=== PATIENT | male | born 1965 | race American Indian/Alaskan Native ===

== ENCOUNTER 2019-02-20 08:21 | Emergency (ER) | payer OTHER ==
[2019-02-20] MEDS ORDERED: amLODIPine 5 MG TAB PO ONE (08:57)
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
[2019-02-20 09:24] LABS: Basophils % (Auto) 0.4 % (0.0-1.8); Eosinophils # (Auto) 0.1 K/mm3 (0.0-0.4); Eosinophils % (Auto) 1.4 % (0.0-4.3); Hematocrit 40.6 % (35.5-45.6); Hemoglobin 13.9 gm/dl (11.8-15.2); Lymphocytes # (Auto) 3.1 K/mm3 (1.2-5.4); Lymphocytes % (Auto) 41.4 % (13.4-35.0); Mean Corpuscular HGB Conc 34 % (32-34); Mean Corpuscular Volume 88 fl (84-94); Monocytes # (Auto) 0.6 K/mm3 (0.0-0.8); Monocytes % (Auto) 7.5 % (0.0-7.3); Platelet Count 223 K/mm3 (140-440); Red Blood Count 4.62 M/mm3 (3.65-5.03); Red Cell Distribution Width 13.4 % (13.2-15.2)
[2019-02-20 09:42] LABS: BUN/Creatinine Ratio 20; Blood Urea Nitrogen 16 mg/dL (9-20); Calcium 9.3 mg/dL (8.4-10.2); Hemolysis Index 2
[2019-02-20 09:43] LABS: Bacteria,Urine 4+ /HPF (Negative); Bilirubin,Urine NEG (Negative); Blood,Urine NEG (Negative); Color,Urine Yellow (Yellow); Mucus,Urine 3+ /HPF
[2019-02-20 09:45] LABS: Amphetamine Screen,Urine PRESUMPTIVE NEGATIVE; Benzodiazepines Screen,Urine PRESUMPTIVE NEGATIVE; Cannabinoid Screen,Urine PRESUMPTIVE NEGATIVE; Methadone Screen,Urine PRESUMPTIVE NEGATIVE; Opiate Screen,Urine PRESUMPTIVE NEGATIVE
[2019-02-20 09:56] LABS: Cocaine Screen,Urine PRESUMPTIVE POSITIVE
[2019-02-20] MEDS ORDERED: NITROFURANTOIN MONOHYD/M-CRYST 100 MG CAP PO ONE (10:07)
[2019-02-20] MEDS ORDERED: POTASSIUM CHLORIDE ER 20 MEQ TAB PO ONE (10:08)
[2019-02-20] MEDS ORDERED: LIDOCAINE-MPF (1%) 10 MG/1 ML VIAL 5 ML INFILTRATI ONE (10:09)
[2019-02-20] MEDS ORDERED: AZITHROMYCIN 1 GM ORAL PWDR PACKET PO ONE (10:09)
[2019-02-20] MEDS: NITROFURANTOIN MONOHYD/M-CRYST 100 MG CAP PO SCH (22:15)
[2019-02-21] MEDS ORDERED: amLODIPine 5 MG TAB PO SCH (10:00)
[2019-02-21] MEDS ORDERED: IBUPROFEN 800 MG TAB PO ONE (10:43)
[2019-02-21] MEDS ORDERED: ACETAMINOPHEN 500 MG TAB PO ONE (10:43)
[2019-02-21] MEDS: POTASSIUM CHLORIDE ER 20 MEQ TAB PO SCH (10:47)
[2019-02-21] MEDS: amLODIPine 10 MG TAB PO SCH (10:47)
[2019-02-21] MEDS: NITROFURANTOIN MONOHYD/M-CRYST 100 MG CAP PO SCH ×2 (10:47→21:57)
--- NOTE | 2019-02-21 13:30 | Progress Note ---
Subjective - Reason for Consult Consult date: 02/21/19 Reason for consult: Pshciatric follow up visit - Chief Complaint Chief complaint: Patient continues to report being depressed and suicidal. He wants to be admitted to the [place]. He denies [place]/[facility] Mental Status Exam - Vital signs Last Vital Signs Temp 97.9 F 02/21/19 07:00 Pulse 71 02/21/19 07:00 Resp 18 02/21/19 07:00 BP 160/96 02/21/19 07:00 Pulse Ox 99 02/21/19 07:00 - Exam Orientation: time, place, person Affect: depressed Mood: hopeless, congruent with affect Thought Process: Intact Perceptions: none Speech: normal rate and pattern Motor activity: normal Level of consciousness: alert Memory: Intact Sleep Symptoms: Difficulty Falling Asleep Interaction: cooperative Assessment and Plan - Patient Problems (1) Cocaine use disorder, severe, dependence Current Visit: Yes Status: Acute (2) Substance induced mood disorder Current Visit: Yes Status: Acute (3) Cocaine abuse Current Visit: Yes Status: Acute Plan to address problem: Recommendations: Continue 1013 Please transfer to inpatient psychiatry Will make medication adjustment as indicated
[2019-02-21] MEDS ORDERED: traZODone 50 MG TAB PO SCH (14:00)
[2019-02-21] MEDS: MIRTAZAPINE 15 MG TAB PO SCH (21:57)
[2019-02-22] MEDS: NITROFURANTOIN MONOHYD/M-CRYST 100 MG CAP PO SCH ×2 (10:55→22:39)
[2019-02-22] MEDS: POTASSIUM CHLORIDE ER 20 MEQ TAB PO SCH (10:55)
[2019-02-22] MEDS: buPROPion XL 150 MG TAB PO SCH (10:55)
[2019-02-22] MEDS: amLODIPine 10 MG TAB PO SCH (10:55)
--- NOTE | 2019-02-22 13:15 | Progress Note ---
Subjective - Reason for Consult Consult date: 02/22/19 Reason for consult: Psychiatry follow up - Chief Complaint Chief complaint: Patient continues to report being depressed and suicidal. He wants to be admitted to the [facility]. He denies HI/AVH Mental Status Exam - Vital signs Last Vital Signs Temp 97.8 F 02/22/19 08:37 Pulse 94 H 02/22/19 08:37 Resp 18 02/22/19 08:37 BP 146/66 02/22/19 08:37 Pulse Ox 99 02/22/19 01:30 - Exam Orientation: time, place, person Affect: depressed Mood: congruent with affect Thought Process: Intact Perceptions: none Speech: normal rate and pattern Concentration: focused Motor activity: normal Level of consciousness: alert Memory: Intact Interaction: cooperative Assessment and Plan - Patient Problems (1) Cocaine use disorder, severe, dependence Current Visit: Yes Status: Acute (2) Substance induced mood disorder Current Visit: Yes Status: Acute (3) Cocaine abuse Current Visit: Yes Status: Acute Plan to address problem: Recommendations: Continue 1013 Please transfer to inpatient psychiatry Will make medication adjustment as indicated
[2019-02-22] MEDS: MIRTAZAPINE 15 MG TAB PO SCH (22:39)
[2019-02-23] MEDS ORDERED: IBUPROFEN 600 MG TAB PO ONE ×2 (11:43→11:57)
[2019-02-23] MEDS: NITROFURANTOIN MONOHYD/M-CRYST 100 MG CAP PO SCH ×2 (11:50→23:05)
[2019-02-23] MEDS: amLODIPine 10 MG TAB PO SCH (11:50)
[2019-02-23] MEDS: buPROPion XL 150 MG TAB PO SCH (11:51)
--- NOTE | 2019-02-23 12:07 | Progress Note ---
Subjective - Reason for Consult Consult date: 02/23/19 Reason for consult: Psychiatric follow up - Chief Complaint Chief complaint: No change this morning. He continues to report being depressed and suicidal and continues to seek admission to the [place]. He is calm and cooperative, eating and sleeping well. He denies ID/H Mental Status Exam Orientation: time, place, person Affect: depressed Mood: congruent with affect Thought Content: Suicidal Thought Process: Intact Perceptions: none Speech: normal rate and pattern Concentration: focused Motor activity: normal Level of consciousness: alert Memory: Intact Interaction: cooperative Assessment and Plan - Patient Problems (1) Cocaine use disorder, severe, dependence Current Visit: Yes Status: Acute (2) Substance induced mood disorder Current Visit: Yes Status: Acute (3) Cocaine abuse Current Visit: Yes Status: Acute Plan to address problem: Recommendations: Continue 1013 Please transfer to inpatient psychiatry Will make medication adjustment as indicated Mental Status Exam - Vital signs Last Vital Signs Temp 98.4 F 02/23/19 01:15 Pulse 98 H 02/23/19 11:50 Resp 16 02/23/19 01:15 BP 137/78 02/23/19 11:50 Pulse Ox 98 02/23/19 01:15 Assessment and Plan - Patient Problems (1) Cocaine use disorder, severe, dependence Status: Acute (2) Substance induced mood disorder Status: Acute (3) Cocaine abuse Status: Acute
[2019-02-23] MEDS: MIRTAZAPINE 15 MG TAB PO SCH (22:00)
[2019-02-24] MEDS: amLODIPine 10 MG TAB PO SCH (10:26)
[2019-02-24] MEDS: NITROFURANTOIN MONOHYD/M-CRYST 100 MG CAP PO SCH (10:27)
[2019-02-24] MEDS: buPROPion XL 150 MG TAB PO SCH (10:27)
--- NOTE | 2019-02-24 12:17 | Progress Note ---
Subjective - Reason for Consult Consult date: 02/24/19 Reason for consult: Psychiatric Follow up - Chief Complaint Chief complaint: Patient review this morning. Nursing staff reports that patient is calm and interactive. He is eating and sleeping well. In my interview with the patient this morning, he reports that his mood is better, he denies SI/HI/AVH/Paranoia. His only concern is that he has no where to stay. Mental Status Exam Orientation: time, place, person Affect: better Mood: congruent with affect Thought Content: No suicidal/homicidal thoughts Thought Process: Intact Perceptions: none Speech: normal rate and pattern Concentration: focused Motor activity: normal Level of consciousness: alert Memory: Intact Interaction: cooperative Assessment and Plan - Patient Problems (1) Cocaine use disorder, severe, dependence Current Visit: Yes Status: Acute (2) Substance induced mood disorder Current Visit: Yes Status: Acute (3) Cocaine abuse Current Visit: Yes Status: Acute Plan to address problem: Recommendations: 1013 Rescinded May discharge home when medically stable. Please discharge on: Wellbutrin xl 150mg qd Remeron 15mg qhs Trazodone 50mg qhs prn insomnia. Thanks Mental Status Exam - Vital signs Last Vital Signs Temp 97.6 F 02/24/19 01:03 Pulse 62 02/24/19 10:26 Resp 16 02/24/19 08:00 BP 160/93 02/24/19 10:26 Pulse Ox 100 02/24/19 08:00
[2019-02-24 13:26] VITALS: BP 164/96
== END 2019-02-24 13:40 | disposition home or self-care (01) ==
LOC: ED 08:21
DX: F14.10 Cocaine abuse, uncomplicated (principal); I10 Essential (primary) hypertension; E87.6 Hypokalemia; N39.0 Urinary tract infection, site not specified; Z91.14 Patient's other noncompliance with medication regimen
CPT/HCPCS: 36415; 80048; 80307; 81001; 83735; 85025; 87076; 87086; 87186; 96372; 99284; J0696; 80320; G0480